=== PATIENT | female | born 1940 | race Caucasian/White ===

== ENCOUNTER → 2024-11-20 | Outpatient (CLI) | payer OTHER, SELFPAY ==
[2024-11-20 11:26] LABS: Glucose Estimated Average 111 mg/dL (80-131); Hemoglobin A1C 5.5 % Hgb (4.8-6.0)
[2024-11-20 11:30] LABS: Cardiac Risk Estimate 2.8 RATIO (3.7-5.6); Cholesterol 184 mg/dL (132-200); HDL Cholesterol 66 mg/dL (40-60); LDL Cholesterol,Calculated 96 mg/dL (0-130); Triglycerides 110 mg/dL (30-150)
== END | disposition home or self-care (01) ==
LOC: COPL 10:10
PROVIDERS: PCP Family Medicine; Referring Provider Family Medicine; Visit Provider Family Medicine
DX: R73.01 Impaired fasting glucose (principal); E78.5 Hyperlipidemia, unspecified
CPT/HCPCS: 36415; 80061; 83036